=== PATIENT | male | born 1970 | race Caucasian/White ===

== ENCOUNTER → 2019-04-05 16:18 | Outpatient (CLI) | payer OTHER, SELFPAY ==
--- NOTE | 2019-04-05 | SEP_PTH ---
PATIENT: LANNY HAMM [facility]: [facility] U#:[id number] AGE/SX: 54/M ROOM: RE04/05/[address]: Dr. Can Harper MD : 1970 BED: DIS: SPEC #: [id number] RECD: 04/05/19 15:59 STATUS: FELICITAS GAMAL #: [id number] MEGHA: 04/05/19 00:[address]: Can Harper DEPT: SURGICAL PATHOLOGY RECD BY: Deejay Almodovar ENTERED: 04/06/19 08:43 SP TYPE: SEPTUM OTHR DR: JANELL Tissues: Nasal septum, NOS Procedures: Decalcification bone/plaque Surgery Specimen Level III HEADER OPERATION: Septoplasty, submucous resection inferior turbinates PRE-OP DIAGNOSIS: Nasal congestion, hypertrophy of nasal turbinates, deviated nasal septum TISSUE SUBMITTED: Septum MICROSCOPIC DIAGNOSIS Nasal septum, septoplasty: Fragments of hyaline cartilage and bone with mild reactive change (clinically deviated septum). AM:ivolette 04/12/19 MICROSCOPIC DESCRIPTION Slides are reviewed. GROSS DESCRIPTION Received is one container labeled with the patient's name and not further designated. The specimen consists of multiple fragments of cartilage and bone in aggregate measure 2.5 x 2.5 x 0.3 cm. The entire specimen is submitted in one cassette after decalcification. / SJ:violette 04/06/19 TC:5 CPT: 88593, [id number]
== END ==
PROVIDERS: Referring Provider Otolaryngology; Visit Provider Otolaryngology
DX: J34.3 Hypertrophy of nasal turbinates (principal); R09.81 Nasal congestion; J34.2 Deviated nasal septum
CPT/HCPCS: 88304; 88311

== ENCOUNTER 2023-05-25 23:56 | Emergency (ER) | payer OTHER, SELFPAY ==
[2023-05-25 23:59] VITALS: BP 125/108; PULSE 87; RESP 16; TEMP 36.6; O2SAT 100
[2023-05-26] MEDS: Diphth,Pertuss(Acell),Tet Vac 0.5 ML Vial IM (01:13)
[2023-05-26] MEDS: Lidocaine 2% (20 ml mdv) 20 ML Vial INFILT (01:13)
--- OUTSIDE RECORDS SUMMARY | 2023-05-26 01:17 | XMS RPT_ITS | CCD ---
Author Name Unknown Address [address] [place] [address] Organization [facility] Care Team Providers Care [employer]els Reclamation Engineer Name Role Phone She MANUEL, Josep Wilkinson Unavailable [phone] Champ Burciaga MD Primary Care Provider Medications Completed/Discontinued Medications Medication Drug Class(es) Dates Sig (Normalized) Sig (Original) Drug Treatment Unknown - unknown (2 sources) No information available. pantoprazole 40 mg delayed release oral tablet (2 sources) Proton Pump Inhibitor Start: 10-29-2021 take 1 tablet by mouth once daily pantoprazole DR (PROTONIX) 40 mg tablet TAKE 1 TABLET BY MOUTH EVERY DAY 90 tablet 3 10/29/2021 Active Problems Problem Classification Problem Date Documented Date Episodic/Chronic Esophageal disorders (2 sources) Gastroesophageal reflux disease; Translations: [Gastro-esophageal reflux disease without esophagitis] Onset: 04-05-2015 04-05-2015 Chronic Unclassified (2 sources) History and physical examination, administrative ; Translations: [Encounter for administrative examinations, unspecified] Onset: 08-15-2016 08-15-2016 Results Test Name Value Interpretation Reference Range Facil ity Encounters Encounter Date Encounter Type Care Provider Facility Start: 10-26-2021 Refill Jodie Dang.VIDEO MACHINES MECHANIC Work Phone: Gastroenterology Procedures Date Procedure Procedure Detail Performing Clinician Start: 08-15-2016 End: 08-15-2016 DOT MIGEL MANUEL Work Phone: Start: 04-19-2015 Colonoscopy Jodie Gardiner APRN.VIDEO MACHINES MECHANIC Work Phone: Plan of Treatment Date Care Activity Detail Author Start: 04-19-2025 Colonoscopy [address] [facility] Start: 04-19-2025 COLORECTAL CANCER SCREENING COLORECTAL CANCER SCREENING [facility] Start: 12-13-2021 Influenza vaccination INFLUENZA (#1) [facility] Start: 2021 SHINGRIX VACCINE (1 of 2) SHINGRIX VACCINE (1 of 2) [facility] Start: 08-15-2016 End: 08-15-2016 Appointment Appointment [facility] Work Phone: Start: 2016 COLOGUARD (FIT-DNA) COLOGUARD (FIT-DNA) [facility] Start: [address] COLONOGRAPHY [facility] Start: 2016 DIABETES SCREEN DIABETES SCREEN [facility] Start: 2016 FECAL OCCULT BLOOD FECAL OCCULT BLOOD [facility] Start: 2016 SIGMOIDOSCOPY SIGMOIDOSCOPY [facility] Start: 2006 LIPID SCREEN LIPID SCREEN [facility] Start: 1990 Urine microalbumin profile DTAP,TDAP,TD (1 - Tdap) [facility] Start: 1989 HEPATITIS C SCREENING HEPATITIS C SCREENING [facility] Start: 1989 HIV SCREENING HIV SCREENING [facility] Start: 1983 Adult depression screening assessment DEPRESSION SCREENING [facility] Start: 1970 COVID-19 VACCINE (#1) COVID-19 VACCINE (#1) [facility] Work Phone: Payers Date Payer Category Payer Unknown MMO MMO [employer] [id number] 2018-Present [phone] [address] [place] [address] O [id number] Social History Date Type Detail Facility Start: 03-21-2015 Tobacco smoking stat us NHIS Never smoked tobacco [facility] Start: 03-21-2015 Tobacco use and exposure Forme r smokeless tobacco user [facility] End: 03-21-2011 History of tobacco use User of smokeless tobacco [facility] Start: 05-23-2021 Alcohol intake Current drinke r of alcohol (finding) [facility] Start: 03-21-2015 History SDOH Alcohol Comment Occassional [facility] Start: 1970 Sex Assigned At Male [facility] Progress note 05-23-2021 Note Date & Type Note Facility 05-23-2021 Note HNO ID: [id number] Author: Jodie Gardiner APRN.JUSTIN Service: ? Author Type: Nurse Practitioner Type: Progress Notes Filed: 05/23/2021 1:45 PM Note Text: CHIEF COMPLAINT: Patient presents with: Follow Up: Rx Protonix This Team Access Model visit is a virtual encounter. It required patient-provider interaction for the medical decision making as documented below. The patient is identified by name and birthday. Patient location: [place] The patient is aware that I am not fully able to assess symptoms and do a full physical exam including vital signs in the office at this time.The patient consented to this type of encounter since it was performed by phone / virtually due to the COVID-19 epidemic as an effort to protect patients and minimize exposure. Last EG04/20/18 : Impression: ? ? - Non-severe reflux esophagitis. Biopsied. Normal stomach. Biopsied. Normal examined duodenum. ? FINAL DIAGNOSIS 1. Stomach, antrum, biopsy (A) - Patchy mild chronic inactive gastritis and reactive epithelial changes. - No intestinal metaplasia or morphologic evidence of Helicobacter pylori organisms. 2. Esophagus, distal, biopsy (B) - Squamous esophageal mucosa and inflamed gastric cardiofundic-type mucosa with reactive epithelial changes; negative for intestinal metaplasia. ? Last Colonoscopy 04/19/2015:The examined portion of the ileum was normal. Biopsied. -No evidence of ileitis. One 5 mm polyp in the rectum. Resected and retrieved. Hyperplastic polyp. Normal mucosa in the entire examined colon. ?Repeat colonoscopy in 5 years for surveillance. Patient was last seen by Sonia Bal on 05/16/2020. That note has been reviewed and part as follows: HPI: The patient presents today reporting that he is trying to eat clean. He has found that altering his diet and not eating as much has helped avoid reflux. Also not eating as late. ? Taking pantoprazole once a day. Offers no complaints. Declines trying a lower dose stating I want to stay with this because I can eat anything without it bothering me . HPI Dwight Glze is a 50 year old male here today for follow up GERD. Patient been under the care of and Sonia Bal for GERD management. Patient reports since his diet changes his symptoms have improved. He reports if he misses a dose or pantoprazole his symptoms will return. The patient daily change in bowel habits,denies black stool, rectal bleeding or abdominal pain. Having a bowel movement daily Current Outpatient Medications Medication Sig - pantoprazole DR (PROTONIX) 40 mg tablet Take 1 tablet by mouth once daily. No current facility-administered medications for this visit. ALLERGIES Allergen Reactions - Penicillin Unknown Social History Tobacco Use - Smoking status: Never Smoker - Smokeless tobacco: Former User Substance Use Topics - Alcohol use: Yes Comment: Occassional - Drug use: No PAST MEDICAL HISTORY Diagnosis Date - GERD (gastroesophageal reflux disease) - Hiatal hernia 04/20/2018 PAST SURGICAL HISTORY Procedure Laterality Date - COLONOSCOP W/ OR W/O BRSH SPEC 04/19/15 Colonoscopy - COLONOSCOPY - EGD - EGD W/O OR W/BRUSH/WASH 04/19/15 EGD - EGD W/O OR W/BRUSH/WASH 04/20/2018 EGD - PAST SURGICAL HISTORY OF 1996 hernia/ mesh - PAST SURGICAL HISTORY OF wisdom teeth FAMILY HISTORY Problem Relation Age of Onset - Heart Father - Cancer Mother - Diabetes Maternal Grandmother - other (motorcycle accident) Son REVIEW OF SYSTEMS Review of Systems PHYSICAL EXAM There were no vitals taken for this visit. No vitals or PE since telemedicine Alert and pleasant, No apparent distress. Easy respirations. Able to speak in complete sentences. Good judgement. Appropriate answers. ASSESSMENT: Gastroesophageal reflux disease without esophagitis PLAN: Assessment/Plan (K21.9) Gastroesophageal reflux disease without esophagitis 1. Gastroesophageal reflux disease without esophagitis Continue current pantoprazole 40mg medications Avoid NSAIDs (such as Advil, Ibuprofen, Excedrin, Mobic), tobacco, alcohol, carbonated beverages, caffeine, chocolate, tomato based sauces, spicy/fatty foods, and peppermint Avoid eating large meals. Avoid eating less than 3 hours before bed. Weight loss. Elevate the head of the bed 6 inches, or at least invest in a wedge pillow. Follow up yearly for medication renewal, and as needed. Follow up in office 3 months/PRN. Recommended to please call office/go to ER if fever, chills, chest pain, SOB, diarrhea, nausea, emesis, worsening abdominal pain, dehydration occurs I spent 30 minutes in the visit, with more than 50% of the total [id number] time of the visit in counseling / coordination of care. I have confirmed and edited as necessary, the PFSH and ROS obtained by others. Jodie Gardiner APRN.VIDEO MACHINES MECHANIC May 23, 2021 1:44 PM [facility] Summary Purpose Family History No Family History Records Found Advance Directives Documents on File Type Date Recorded Patient Opto Mechanical Technician Expl anation Advance Directive(s) 04/20/2018 2:38 PM Additional Source Comments (unrecognized sect ion and content) No Status Records Found INFORMATION SOURCE (unrecogn ized section and content) Source Comments (unrecognize d section and content) In the event this informatio n is protected by the Federal Confidentiality of Alcohol and Drug Abuse Patient Records regulations: The Federal rules restrict any use of the information to criminally investigate or prosecute any alcohol or drug abuse patient.[facility] Reason for Visit (unrecogniz ed section and content) Care Teams (unrecognized sec tion and content) FOR RECORDS PERTAINING TO PATIENTS WHO ARE OR HAVE BEEN ENROLLED IN A CHEMICAL DEPENDENCY/SUBSTANCEABUSE PROGRAM, SOME INFORMATION MAY BE OMITTED. This clinical summary was aggregated from multiple sources. Caution should be exercised in using it in the provision of clinical care. This summary normalizes information from multiple sources, and as a consequence, information in this document may materially change the coding, format and clinical context of patient data. In addition, data may be omitted in some cases. CLINICAL DECISIONS SHOULD BE BASED ON THE PRIMARY CLINICAL RECORDS. [facility]. provides no warranty or guarantee of the accuracy or completeness of information in this document.
--- NOTE | 2023-05-26 01:20 | RAD_ITS ---
STUDY: X-RAY - LEFT HAND REASON FOR EXAM: Male, 52 years old. pain TECHNIQUE: 3 view(s) of the hand. COMPARISON: None. FINDINGS: Normal radiocarpal articulation. Normal distal radioulnar joint. Normal visualized carpal bones. Normal carpal articulations Normal carpometacarpal articulation of the thumb. Normal second through fifth carpometacarpal joints. Normal metacarpi. Normal metacarpophalangeal joint of the thumb. Normal interphalangeal joint of the thumb. Normal proximal and distal phalanges of the thumb. Normal metacarpophalangeal joints of the second through fifth fingers. Normal proximal and distal interphalangeal joints of the second through fifth fingers. Normal phalanges of the second through fifth fingers. The soft tissue structures are unremarkable. RAD/Hand Min 3 Views IMPRESSION: Unremarkable x-ray of the hand with no obvious fracture or subluxation. Electronically Signed: Effie Lim MD at 2:12 EST ,
--- NOTE | 2023-05-26 02:51 | EDS_ITS ---
HPI History of Present Illness Chief Complaint: Laceration Informant: patient Narrative Narrative: Patient is a 52-year-old male with no significant past medical history. He reports he was at work this evening using a cutting grinding wheel when the wheel broke and cut his left middle finger. He states the injury happened roughly 1 hour prior to arrival. He is unsure of his tetanus status. He denies any numbness tingling or weakness. He reports he is right-hand dominant [facility] Medical History (Updated 05/26/23 @ 02:[address] Sivakumar Cameron, DO) Hemorrhoids Right inguinal pain Home Medications pantoprazole 20 mg tablet,delayed release 20 mg PO DAILY 10/25/21 [History Last Taken Unknown] sulfamethoxazole 800 mg-trimethoprim 160 mg tablet (Bactrim DS) 1 tab PO BID 7 days #14 tabs 05/26/23 [Rx Last Taken Unknown] Allergy/AdvReac Type Severity Reaction Status Date / Time Penicillins Allergy PT UNSURE Verified 05/25/23 23:59 OF REACTION Family History (Updated 10/25/21 @ 07:23 by Aishwarya Concepcion) Other Diabetes Heart disease Social History (Updated 10/25/21 @ 07:23 by Aishwarya Concepcion) Smoking Status: Never smoker alcohol intake: never ROS ROS ED Constitutional Constitutional ED: Denies chills or fever(s) ENT ENT ED: Denies sore throat Cardiovascular Cardiovascular: Denies chest pain Respiratory/Chest Respiratory/Chest: Denies cough or dyspnea Gastrointestinal Gastrointestinal: Denies abdominal pain, diarrhea, nausea or vomiting Genitourinary Genitourinary ED: Denies dysuria Musculoskeletal Musculoskeletal: Reports other Details: Positive left hand pain Integumentary Reports other Details: Positive left middle finger laceration Neurologic Neurologic: Denies headache(s), paresthesias or weakness Hematologic/Lymphatic Hematologic/Lymphatic: Denies easy bleeding or easy bruising EXAM Physical Exam Const Vital Signs: 05/25/23 23:59 Temperature 97.8 F Temperature Source Oral Pulse Rate 87 Respiratory Rate 16 Blood Pressure 125/108 H Blood Pressure Mean 113 Pulse Ox 100 Positive well nourished and well developed General Appearance ED: well developed HEENT HEENT Narrative: Normocephalic atraumatic Eyes PERRL and EOMs intact bilaterally Neck supple Resp normal respiratory effort and clear to auscultation bilaterally Cardio regular rate and regular rhythm Extremity Extremity Narrative: Left upper extremity is neurovascularly intact; AIN/PIN are intact and normal. Patient has a jagged but overall linear laceration to the dorsal aspect of his left middle finger that crosses the PIP joint. The laceration is 3.5 cm in length and extends down through subcutaneous tissue and there is minimal ooze of blood without foreign body. There is no ligamentous or tendon injury noted either. No injury to the nailbed noted. Remainder of the exam is normal Neuro oriented x3, CN's II-XII intact bilaterally and no sensory deficits noted Sensorium / Orientation: alert Motor Exam: strength 5/5 throughout Psych mental status grossly normal Skin Skin Narrative: Laceration to left middle finger as documented above MDM MDM MDM Narrative Medical decision making narrative: Patient presented with a laceration to his left middle finger. The injury occurred by hide powered cutting wheel therefore there is concern for open fracture and an x-ray was ordered. X-ray revealed no acute findings such as fracture or retained foreign body. By exam he does not have arterial injury and there is no signs of ligamentous or tendon injury either. Therefore there is no need for further workup. Patient's tetanus status was updated and the wound was closed as documented below. As the wound is moderately contaminated I did elect to start him on prophylactic antibiotics but as he has no signs of systemic infection arterial injury or tendon laceration he is otherwise safe for discharge Patient had the left middle finger cleaned with chlorhexidine. It was anest hetized using 8 mL of 2% lidocaine without epinephrine in digital block fashion. The wound was copiously irrigated with normal saline. Then twelve 4-0 Ethilon sutures were placed in simple interrupted fashion. This brought the wound together good approximation. Patient tolerated the procedure well without complication. History & Record Review Discussion w/independent historian: Patient Radiography Diagnostic Testing: Clinical Impression(s) from Imaging Studies Hand X-Ray 05/26/23 01:20 IMPRESSION: Unremarkable x-ray of the hand with no obvious fracture or subluxation. Electronically Signed: Effie Lim MD at 2:12 EST , X-ray of the left hand as interpreted by the emergency medicine physician reveals no acute fracture dislocation or retained foreign body. Discharge Plan Triage Chief Complaint: Laceration ED Provider: Sivakumar Cameron Dx/Rx/DC Orders Clinical Impression: Laceration of left middle finger without foreign body without damage to nail Instructions: ED Laceration, Hand: All Closures Prescriptions: New sulfamethoxazole-trimethoprim [Bactrim DS] 800-160 mg tablet 1 tab PO BID 7 Days Qty: 14 0RF No Action pantoprazole 20 mg tablet,delayed release (DR/EC) 20 mg PO DAILY Primary Care Provider: Virgil Burciaga Referrals: Virgil Burciaga MD [Primary Care Provider] - Activity Restrictions/Additional Instructions: Please follow-up with your family doctor [facility] or the ER in 7 to 10 days for suture removal. You may wash your hands and shower but do not soak them in bath water or dishwater. Take the antibiotic to prevent infection but if you notice signs for this please return for repeat evaluation. Disposition Disposition: Home, Self Care Discharge Date/Time: 05/26/23 03:52
[2023-05-26] MEDS: Smz/Tmp Ds Tablet 1 TABLET PO (02:58)
== END 2023-05-26 03:52 | disposition home or self-care (01) ==
PROVIDERS: Emergency Provider Emergency Medicine; PCP Family Medicine; Visit Provider Emergency Medicine
DX: S61.213A Laceration without foreign body of left middle finger without damage to nail, initial encounter (principal); W29.8XXA Contact with other powered hand tools and household machinery, initial encounter; Y93.89 Activity, other specified; Y99.0 Civilian activity done for income or pay; Y92.89 Other specified places as the place of occurrence of the external cause; Z23 Encounter for immunization
CPT/HCPCS: 12002; 73130; 90471; 90715; 99282

== ENCOUNTER 2023-08-21 16:30 | Outpatient (RCR) | payer OTHER, SELFPAY ==
--- NOTE | 2023-07-29 10:10 | HP.OTEVAL_ITS ---
Patient's Visit Information Visit Information Visit Information: LANNY HAMM is a 53 year old M, referred to Occupational Therapy by Dr. Ana Mathews MD, with a diagnosis of laceration of extensor tendon of left finger S66.323A. Date of Evaluation: 07/28/23 Occupational Therapist: Kathleen Goldsmith, OTR/Kem, CHT Subjective Subjective: This 53 year old male was seen for OT eval with dx of left proximal phalanx. pt states she was working at [employer] and a grinding wheel flew off of a stopper grinder-- He new it hit his finger and suffered an injury. pt states 05/26/23 DOI grinding wheel, went to ER- went to hand specialist for follow up and had sx in 06/05/23 pin removed July 16 following 6 weeks of pinning- Pt states had to repair extensor tendon- as he was demo with a boutonniere deformity. pt states when pin was removed they took his splint away and told him to go ahead and start therapy. C9 states Date of service for clamshell orthosis was on 06/17/23 and requested OT eval and treat on 06/17/23. ( our facility received faxed order on 07/04/23) This order indicated eval and treat OT services 2-3x week for 4-6 weeks. Date limit on 09/12/23 pt states he has started to move his hand but finger is not moving as well as he thought it should be. ROM MP: right +15/85 left +15/70 PIP: right 0/95 left -15/ 45 DIP: right -10/45 left 0/20 ROM Comments: pt demo with limited Left Middle finger ROM following extensor tendon repair and pinning. noted scar adhesions Strength Certified Fraud Examiner: right 100# left NT Strength Comments: left will be tested at later date Sensation Sensation Comments: denies Quick DASH-Disab of Arm,Shoulder& Hand Quick DASH Score: 33.9275 Goals Goal:100% adherence to protocol: Yes Comment: extensor tendon guidelines Goal:Daily scar massage when approriate: Yes Goal:ROM equal to unaffected hand: Yes Goal:Certified Fraud Examiner/Pinch strength at least 75% of unaffected hand: Yes Goal:No pain with affected hand use: Yes Goal:Full use of affected hand in daily activities including work: Yes Rehabilitation General Assessment: pt arrives 7 weeks and 4 days s/p from extensor tendon laceration repair, and 1 week and 4 days following pin removal Pt demo with limited left MF ROM and newly healing extensor tendon repair limiting use of left hand with ADLs and work tasks. Pt would benefit from skilled OT services 2- 3x week for 4-6 weeks. Therapist ed. pt on initiation of scar mtg. and tendon glide exercise. Pt demo understanding and agree to POC. Rehabilitation Potential: Good Anticipated Interventions Anticipated Interventions: A/AAROM/PROM, Strengthening, Scar Care, Triggerpoint Release, Desensitization, Modalities, Orthoses, Joint Protection/Energy Conservation, ADL Training, Education re Diagnosis and Home Program Visit Plan Frequency: 2-3x /Week Duration: 6 Weeks TEXT: Thank you for the opportunity to evaluate your patient. For Medicare and Medicare HMO plans, please review the plan of care and approve it. It will need to be FAXED BACK to us at [phone] for Medicare purposes. Please let me know if there are questions or concerns regarding this plan of care. Physician Signature: Date:
--- NOTE | 2023-08-07 17:16 | HP.OTREVAL ---
Re-Evaluation Intro: Dr. Ana Mathews MD, It has been my pleasure to treat LANNY HAMM over the last 4 visits for laceration of extensor tendon of left finger S66.323A. Please see the progress note below for an update on the occupational therapy plan of care! Subjective Subjective: pt arrives to therapy session extensor tendon zone 3 laceration with repair- pinning for 6 weeks pin removed at 2 weeks and 4 days out from pin removal- pt demines pain Objective Objective/Function: Left MF PIP -10/65 Left MF DIP 0/35 2.5cm from composite fist Plan Plan Frequency: 2-3x /Week Duration: 6 Weeks Plan: US to A1 diaz region to decrease pain Goals Goals Patient Goals: Return to Work, Improve Fine Motor Skills, Use Hand/Wrist/Arm Normally Again and Be More Independent in ADLS Goal:100% adherence to protocol: Yes Goal:Daily scar massage when approriate: Yes Goal:ROM equal to unaffected hand: Yes Goal:Material Man/Pinch strength at least 75% of unaffected hand: Yes Goal:No pain with affected hand use: Yes Goal:Full use of affected hand in daily activities including work: Yes Anticipated Interventions Anticipated Interventions Anticipated Interventions: A/AAROM/PROM, Strengthening, Scar Care, Triggerpoint Release, Desensitization, Modalities, Orthoses, Joint Protection/Energy Conservation, ADL Training, Education re Diagnosis and Home Program Re-Evaluation Ending Re-evaluation ending: Please do not hesitate to contact me at [phone] by phone or if you have questions or concerns regarding this new plan of care! Sincerely, Cheyenne Ross
--- NOTE | 2023-08-11 17:19 | OTREVAL_ITS ---
Re-Evaluation Intro: Dr. Ana Mathews MD, It has been my pleasure to treat LANNY HAMM over the last 5 visits for laceration of extensor tendon of left finger S66.323A. Please see the progress note below for an update on the occupational therapy plan of care! Subjective Subjective: pt arrives to therapy session extensor tendon zone 3 laceration with repair- pinning for 6 weeks pin removed at June 15 (total weeks out of sx 9 weeks and 4 days ) pt demines pain pt compliant with his HEP . Objective Objective/Function: pt arrives states he is doing his ex- has felt better last few days- continues with scar mtg- AROM/AAROM and flexion blocking/ reverse blocking ex. 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 Plan Plan Plan: Dr. 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 Sincerely, NATHALY Toledo/L, CHT
--- NOTE | 2023-08-21 17:04 | HP.OTDCSUM_ITS ---
Discharge Summary D/C Summary: It has been my pleasure to treat LANNY HAMM under orders from Dr. Ana Mathews MD, for the diagnosis of laceration of extensor tendon of left finger S66.323A for a total of 8 visit(s). Please see the following information for a summary of their discharge status. 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 Thank you for the referral of this patient. Sincerely, Cheyenne Ross
--- NOTE | 2023-08-21 17:05 | HP.OT.NRP ---
Patient Information Patient Information: LANNY HAMM was seen in my office for initial evaluation on 07/28/23. The following Plan of Care was established for this patient: POC Established Initial Frequency: 2-3x /Week Initial Duration: 6 Weeks Plan: discharge Anticipated Interventions Anticipated Interventions: A/AAROM/PROM, Strengthening, Scar Care, Triggerpoint Release, Desensitization, Modalities, Orthoses, Joint Protection/Energy Conservation, ADL Training, Education re Diagnosis and Home Program Last Seen Last Seen: This patient was last seen in our office 08/21/23. Pertinent comments regarding their Occupational therapy will appear below: This male pt seen by OT progressed in ROM as well as strength and reduction of pain. pt has met all goals with exception of ROM equal to non affected UE however pt has progressed significantly throughout POC in ROM and is now able to functionally use L UE. discharge at this time pt in agreeance. At this point I will be discontinuing this patient from occupational therapy. I would be happy to see this patient again in the future if found appropriate by the physician. Thank you! Cheyenne Ross
== END 2023-08-21 19:00 | disposition home or self-care (01) ==
LOC: OT 16:30
PROVIDERS: PCP Family Medicine; Referring Provider Orthopaedic Surgery Hand Surgery; Visit Provider Orthopaedic Surgery Hand Surgery
DX: S62.643D Nondisplaced fracture of proximal phalanx of left middle finger, subsequent encounter for fracture with routine healing (principal)
CPT/HCPCS: 97110; 97140; 97166; 97530

== ENCOUNTER → 2025-01-21 | Outpatient (CLI) | payer OTHER, SELFPAY ==
[2025-01-21 12:42] LABS: Anion Gap 12 (5-15); BUN 20 mg/dL (4-19); BUN/Creat Ratio 18.1 RATIO (10-20); Calcium,Total 9.5 mg/dL (7.6-11.0); Carbon Dioxide 23.6 mmol/L (21.0-32.0); Chloride 105 mmol/L (98-108); Cholesterol 220 mg/dL (<=200); Glucose 95 mg/dL (70-99); Low Density Lipoprotein Calc. 127 mg/dL; PSA,Total - Annual Screen 2.14 ng/mL (0.02-4.00); Potassium 4.2 mmol/L (3.3-5.1); Triglycerides 29 mg/dL; Very Low Density Lipoprotein 6 mg/dL (5-40); cholesterol:hdl ratio screen 2.53
== END | disposition home or self-care (01) ==
LOC: MTLAB 08:36
PROVIDERS: PCP Family Medicine; Referring Provider Family Medicine; Visit Provider Family Medicine
DX: Z13.1 Encounter for screening for diabetes mellitus (principal); Z13.220 Encounter for screening for lipoid disorders; Z12.5 Encounter for screening for malignant neoplasm of prostate
CPT/HCPCS: 36415; 80048; 80061; 84153; G0103